=== PATIENT | female | born 1975 | race African-American/Black ===

== ENCOUNTER 2019-10-05 00:49 | Outpatient (CLI) | payer BC, SELFPAY ==
[2019-10-05 19:25] LABS: SARS-CoV-2 RNA PCR Negative
== END 2019-10-05 00:50 | disposition home or self-care (01) ==
LOC: ANHCOVIDDT 00:49
PROVIDERS: PCP Internal Medicine Infectious Disease; Visit Provider Surgery Plastic and Reconstructive Surgery
DX: Z01.812 Encounter for preprocedural laboratory examination (principal); Z11.59 Encounter for screening for other viral diseases
CPT/HCPCS: 87635; C9803; U0003

== ENCOUNTER 2019-10-07 01:23 | Day surgery (SDC) | payer BC, SELFPAY ==
[2019-09-23 15:08] VITALS: BMI 30.6
[2019-10-07] VITALS (12 sets, daily range): BP systolic 99–150; BP diastolic 64–120; PULSE 63–91; RESP 12–20; TEMP 36.2–37.1; O2SAT 98–100
[2019-10-07] MEDS: LACTATED RINGERS 1,000 ML 30 ML IV CONT ×2 (06:24→09:36)
[2019-10-07 06:31] LABS: Urine Cotinine NEGATIVE
--- NOTE | 2019-10-07 06:44 | WPDANESEPPF ---
Anes - Initial Pre Proc Eval Procedure: Operation Date: 10/07/19 07:30 Proposed Procedures p Revision Of Right Breast Reduction - Pranay Harp MD s Left Breast Fat Grafting - Pranay Harp MD Date/Time: 10/07/19 06:44 Surgeon: Pranay Harp MD Pre Op Diagnosis: Hx Breast Reduction Patient Data Age: 43 Gender: F Height: 1.65 m Weight: 85.3 kg Last Vital Signs Temp 36.2 C L 10/07/19 06:29 Pulse 63 10/07/19 06:29 Resp 18 10/07/19 06:29 BP 99/64 L 10/07/19 06:29 Pulse Ox 100 10/07/19 06:29 Allergies Allergy/AdvReac Type Severity Reaction Status Date / Time No Known Allergies Allergy Unverified 10/07/19 06:05 Home Medications Medication Instructions Recorded Confirmed Type multivitamin 1 cap PO DAILY 06/29/19 10/07/19 History docusate sodium 100 mg capsule 100 mg PO BID #14 cap 09/22/19 10/07/19 Rx hydrocodone 5 mg-acetaminophen 325 1 tablet PO Q6H PRN #15 tablet 09/22/19 10/07/19 Rx mg tablet ondansetron HCl 4 mg tablet 4 mg PO Q6H PRN #30 tablet 09/22/19 10/07/19 Rx Vitamin C 1 tablet PO DAILY 09/23/19 10/07/19 History iron 1 tablet PO DAILY 09/23/19 10/07/19 History Laboratory Tests 10/07/19 06:17 Cotinine Negative Patient hx anesthesia problems: none Family hx anesthesia problems: none [facility] Past Medical History Medical History (Updated 10/07/19 @ 06:45 by Severo Luke MD) Obesity Surgical History Surgical History History of bilateral breast reduction surgery Social History Social History Smoking status: Never smoker Spiritual care concerns: No Anes - Eval Final PreProcedure Day of Procedure 10/07/19 06:44 Patient weight: obese Heart: regular rate and rhythm Lungs: clear to auscultation and normal air movement Airway: Mallampati scale class II Neurological: alert and oriented Last oral intake: >/= 8 hours ASA classification: II Emergent: no Anesthetic plan: proceed Anesthesia type and monitoring: general LMA Informed Consent: The patient's anesthetic plan and its attendant risks and benefits were discussed with the patient/family/POA. Questions were solicited and answers provided to the satisfaction of the patient/family/POA.
--- NOTE | 2019-10-07 07:10 | WPDHPUPDATE1 ---
History and Physical Update Update Date/Time: 10/07/19 07:10 History and Physical has been reviewed, including an updated exam of the patient. There are NO changes in the patient's condition. Risks, benefits, and alternatives have been discussed and questions answered. Patient agrees to proceed with procedure.
[2019-10-07] MEDS: SCOPOLAMINE 1.5 MG PATCH TRANSDERM (07:20)
[2019-10-07] MEDS: ceFAZolin 2 GM/D5W 50 ML 2 GM/50 ML BAG IVPB (07:26)
--- NOTE | 2019-10-07 09:42 | P.OP_ITS ---
Procedure Note - Detailed Date of procedure: 10/07/19 Pre-op diagnosis: Hx Breast Reduction Post-op diagnosis: same Procedure performed: Revision bilateral breast (52cm) Subcision left inferior pole breast Bilateral breast fat grafting Description of procedure: Patient was marked in the preoperative holding area. We verified that we are doing bilateral breast revision, bilateral breast fat grafting, and all the procedures above. I marked and discussed our planned treatment areas so we are in full agreement prior to proceeding so she was well informed. I want to make sure we had the same planned she understood realistic expectations of outcome as well as risks involved. Consent was obtained. She was taken to the operating room placed supine operating room table. Anesthesia provided by anesthesiology and prepped and draped in standard sterile fashion. Surgical time-out was taken. There was a discrepancy in the procedure stated during time out and we verified the patient had confirmed the procedure verbally correctly to nursing prior to anesthetsia, at previous visit with me, and pre-operativly while marking. We were full agreement that the above procedure described in this operative note was correct. 14 gauge needle was used to make stab incisions as necessary for abdominal/flank suction lipectomy. These areas were infiltrated with a tumescent solution and adequate time for hemostasis was allowed.I used a multi hole 3 mm cannula on suction to a gravity separation device. total volume of aspirate was 750 cc. I allowed for adequate time for gravity separation. I proceeded to the revision of bilateral breast. This was along bilateral breast IMF which had been marked preoperatively. Ten blade used to excise these areas. These were closed using 2-0 Vicryl. After the fat grafting was completed I did close with 3-0 strata fix and running subcuticular 4-0 Monocryl followed by Steri-Strips. In the sitting position on the left breast I verified the area of depression along the inferior pole. I used a cane needle and did a vertical meshing subcision technique until there was release. I placed the central adipose limiting the inferior and superior aspects just taking adipose tissue and 10 cc syringes. Using a 2.1 mm cannula this was injected 1st on the left breast inferior pole until I had good contour. This was to provide volume as well as help see the sub session open. This was in mu ltiple planes and passes. I then proceeded to bilateral upper pole breast poles. Dressing was placed. Patient was taken the PACU without difficulty. All instrument sponge counts were correct at the end of the case. Anesthesia: GLMA Surgeon: Pranay Harp MD Estimated blood loss (mL): 20 Drains: No Packing: No Pathology: yes (breast tissue) Complications: No immediate complications Condition: stable Disposition: PACU Findings: Right breast revision 29cm Left breast revision 23cm Left inferior pole subcision with k needle Left lower breast fat grafting 57cc Left upper pole breast fat grafting 35cc Right upper pole breast fat grafting 35cc Pre-operativly the right IMF scar had crossed the midline from previous surgery.
== END 2019-10-07 12:50 | disposition home or self-care (01) ==
PROVIDERS: PCP Internal Medicine Infectious Disease; Visit Provider Surgery Plastic and Reconstructive Surgery
PROC: 0HBV0ZZ Excision of Bilateral Breast, Open Approach (ICD-10-PCS; CPT 19318; principal; 2019-10-07 07:30)
PROC: (CPT 15769; 2019-10-07 07:30)
DX: N64.89 Other specified disorders of breast (principal); R20.3 Hyperesthesia; E66.9 Obesity, unspecified; Z68.31 Body mass index [BMI] 31.0-31.9, adult
CPT/HCPCS: 19380; 36415; 80307; 88305; A9270; J0171; J0330; J0690; J1100; J1170; J2250; J2405; J2704; J3010; J7120

== ENCOUNTER 2020-02-19 00:31 | Outpatient (CLI) | payer BC, SELFPAY ==
[2020-02-19 19:14] LABS: SARS-CoV-2 RNA PCR Negative
== END 2020-02-19 00:32 | disposition home or self-care (01) ==
LOC: ANHCOVIDDT 00:31
PROVIDERS: PCP Internal Medicine Infectious Disease; Visit Provider Surgery Plastic and Reconstructive Surgery
DX: Z01.818 Encounter for other preprocedural examination (principal); Z20.828 Contact with and (suspected) exposure to other viral communicable diseases
CPT/HCPCS: 87635; C9803; U0003

== ENCOUNTER 2020-02-22 01:02 | Day surgery (SDC) | payer BC, SELFPAY ==
[2020-02-15 16:24] VITALS: BMI 30.4
--- NOTE | 2020-02-21 12:09 | WPDANESEPPF ---
Anes - Initial Pre Proc Eval Procedure: Operation Date: 02/22/20 10:30 Proposed Procedures p Right Medial and Lateral Breast Revision, Left Lateral Breast Revision, Left Inferior Pole Subcision, - Pranay Harp MD s Bilateral Upper Breast Fat Grafting - Pranay Harp MD Date/Time: 02/21/20 12:09 Surgeon: Pranay Harp MD Pre Op Diagnosis: acquired breast deformity Patient Data Age: 44 Gender: F Height: 1.65 m Weight: 83 kg Allergies Allergy/AdvReac Type Severity Reaction Status Date / Time No Known Allergies Allergy Verified 02/22/20 08:31 Home Medications Medication Instructions Recorded Confirmed Type multivitamin 1 cap PO DAILY 06/29/19 02/15/20 History Vitamin C 1 tablet PO DAILY 09/23/19 02/15/20 History iron 1 tablet PO DAILY 09/23/19 02/22/20 History hydrocodone 5 mg-acetaminophen 325 1 tablet PO Q6H PRN #15 tablet 02/09/20 02/09/20 Rx mg tablet ondansetron HCl 4 mg tablet 4 mg PO Q6H PRN #30 tablet 02/09/20 Rx Patient hx anesthesia problems: none Family hx anesthesia problems: none PMFSH Past Medical History Medical History Obesity Surgical History Surgical History History of bilateral breast reduction surgery Social History Social History Smoking status: Never smoker Alcohol intake: current Substance use: never Living arrangements: with family Gender identity (if verbalized by the patient): Female Sexual Orientation (if Verbalized by the Patient): Straight or Heterosexual Spiritual care concerns: No Anes - Eval Final PreProcedure Day of Procedure 02/21/20 12:09 Patient weight: obese Heart: regular rate and rhythm Lungs: clear to auscultation and normal air movement Airway: Mallampati scale class II Neurological: alert and oriented Last oral intake: >/= 8 hours ASA classification: II Emergent: no Anesthetic plan: proceed Anesthesia type and monitoring: general LMA Informed Consent: The patient's anesthetic plan and its attendant risks and benefits were discussed with the patient/family/POA. Questions were solicited and answers provided to the satisfaction of the patient/family/POA.
[2020-02-22] VITALS (10 sets, daily range): BP systolic 89–141; BP diastolic 67–78; PULSE 75–91; RESP 12–16; TEMP 36.1–36.3; O2SAT 96–100; BMI 31.8
[2020-02-22 08:38] LABS: Urine Cotinine NEGATIVE
[2020-02-22] MEDS: LACTATED RINGERS 1,000 ML 30 ML IV CONT ×2 (09:00→12:03)
[2020-02-22 09:04] LABS: Hemoglobin 11.9 g/dL (12.0-15.0)
[2020-02-22] MEDS: SCOPOLAMINE 1.5 MG PATCH TRANSDERM (09:10)
--- NOTE | 2020-02-22 09:46 | WPDHPUPDATE1 ---
History and Physical Update Update Date/Time: 02/22/20 09:46 History and Physical has been reviewed, including an updated exam of the patient. There are NO changes in the patient's condition. Risks, benefits, and alternatives have been discussed and questions answered. Patient agrees to proceed with procedure.
--- NOTE | 2020-02-22 10:03 | SUR.PREOP ---
DR SIMMONS MARKED PT. RN IN ROOM
--- NOTE | 2020-02-22 10:06 | P.OP_ITS ---
Procedure Note - Detailed Date of procedure: 02/22/20 Pre-op diagnosis: acquired breast deformity Post-op diagnosis: same Procedure performed: * Right medial and lateral breast revision 25.5 cm. * Left lateral breast revision approximally 18cm. * Left inferior pole subcision and fat grafting 43cc * Bilateral upper breast fat grafting right breast 40cc left breast 40cc. Description of procedure: She was marked in the preoperative holding area with her verification. Risks, benefits, alternatives were discussed extensively. I want her to be very realistic about the risks involved as well as expectations. I explained this is functional not cosmetic. This is a revision of her previous functional procedure completed elsewhere. Explained we will never have perfect symmetry. Discussed limitations of the procedure. Answered all of her qu estions to her satisfaction today. Consent obtained. She was taken to the operating room placed supine on the operating room table. Anesthesia provided by anesthesiology and prepped and draped in a standard sterile fashion. Surgical time-out was taken. Abdominal examination was completed. I tumesced with a tumescent solution which was completed through a 14 gauge needle puncture site. Once adequate time for hemostasis a 3 mm multi hole cannula was used and I with a gravity separation device. I proceeded to the breast. Using the tumescent solution a stab incision was made and I tumesced the planned revision areas. A 10 blade used to make the incisions in a resected the excess tissue on the right medial and lateral breast as well as left lateral breast. This was closed with 2-0 Vicryl followed by 3-0 strata fix in a running subcuticular 4-0 Monocryl. Using K needles I completed sub session of the left breast in order to release that inferior pole to the best my ability. Once adequate time for separation of the adipose tissue use the central most portion getting rid of the liquid and lipid components. Using a 3 mm cannula the adipose tissue was injected into the breast as necessary for contouring and to help release this inferior pole. Dressings were placed. She tolerated well. Was awoke and taken the PACU without difficulty. All instrument sponge counts were correct at the end the case. Anesthesia: GLMA Surgeon: Pranay Harp MD Estimated blood loss (mL): 10 Drains: No Packing: No Pathology: yes (Breast tissue / skin) Complications: No immediate complications Condition: stable Disposition: PACU Findings: [place] site abdomen and flanks.
[2020-02-22] MEDS: ceFAZolin 2 GM/D5W 50 ML 2 GM/50 ML BAG IVPB (10:11)
[2020-02-22] MEDS: fentaNYL CITRATE INJ (*CRX) 100 MCG/2 ML VIAL 25 MCG IV PUSH ×8 (12:18→12:53)
[2020-02-22] MEDS: oxyCODONE HCL (*CRX) 5 MG TAB IR PO (13:55)
--- NOTE | 2020-02-22 15:26 | SUR.PHASEII ---
DR SIMMONS WAS CALLED FOR A BRA AND BINDER.
== END 2020-02-22 14:45 | disposition home or self-care (01) ==
PROVIDERS: Visit Provider Surgery Plastic and Reconstructive Surgery
PROC: 0HBV0ZZ Excision of Bilateral Breast, Open Approach (ICD-10-PCS; CPT 19318; principal; 2020-02-22 10:30)
PROC: (CPT 15769; 2020-02-22 10:30)
DX: N64.89 Other specified disorders of breast (principal); R20.3 Hyperesthesia; N64.4 Mastodynia; N60.31 Fibrosclerosis of right breast; N60.41 Mammary duct ectasia of right breast; E66.9 Obesity, unspecified; Z68.31 Body mass index [BMI] 31.0-31.9, adult; Z79.899 Other long term (current) drug therapy
CPT/HCPCS: 19380; 80307; 85014; 85018; 88305; A9270; J0171; J0690; J2250; J2405; J2704; J3010; J7120

== ENCOUNTER 2020-06-13 18:54 | Emergency (ER) | payer BC, SELFPAY ==
[2020-06-13 20:09] VITALS: BP 123/74; PULSE 70; RESP 20; TEMP 36.6; O2SAT 100
--- NOTE | 2020-06-13 22:30 | ED.ALLEREA ---
HPI - Allergic Reaction General Chief complaint: Allergic Reaction Stated complaint: lips swollen, rash, Time Seen by Provider: 06/13/20 22:02 Source: patient Mode of arrival: EMS Limitations: no limitations History of Present Illness HPI narrative: This is a 44 year old female who presents to ER for evaluation of an allergic reaction. She states prior to arrival in ER she developed lip swelling, itching throat and hives while she was taking a shower. She also reports since congestion, sneezing and sob at onset. She called EMS and she was given Benadryl. She reports her lip swelling and sore throat symptoms were resolved. Her hives have resolved as well. She denies history of an allergic reaction in the past. She denies any new exposures. MD complaint: allergic reaction Related Data Home Medications Medication Instructions Recorded Confirmed multivitamin 1 cap PO DAILY 06/29/19 02/15/20 Vitamin C 1 tablet PO DAILY 09/23/19 02/15/20 iron 1 tablet PO DAILY 09/23/19 02/22/20 Allergies Allergy/AdvReac Type Severity Reaction Status Date / Time No Known Allergies Allergy Verified 03/13/20 07:32 Review of Systems Review of Systems: All systems reviewed & are unremarkable except as noted in HPI and below PMFSH Past Medical History Medical History (Updated 06/14/20 @ 00:00 by Martell Spears) Obesity Sarcoidosis Surgical History Surgical History History of bilateral breast reduction surgery Social History Social History Smoking status: Never smoker Alcohol intake: current Substance use: never Gender identity (if verbalized by the patient): Female Spiritual care concerns: No Exam Const: General: no acute distress and alert Orientation/consciousness: patient oriented x3 HENMT: Ears: external ears normal Face and sinus: normal facial exam Mouth: Yes Normal oral and palatal mucosa present, Yes lip normal and Yes moist mucous membranes Throat: posterior oropharynx normal and uvula midline Other: no lip or soft palate or uvula swelling Eyes: EOM: EOMs intact bilaterally Chest: Chest palpation & inspection: normal inspection of the chest Resp: Effort & Inspection: normal respiratory effort, no retractions and no use of accessory muscles Auscultation: not clear to auscultation bilaterally and no wheezes Cardio: Rate: regular rate Rhythm: regular rhythm Heart sounds: no murmurs Skin: General skin exam: normal color Rashes: no rashes Neuro: General: patient oriented x3, moves all extremities and CN's II-XI intact bilaterally Extrem: General: normal to inspection Psych: Affect: normal affect Attitude: cooperative Course Reevaluation(s) Reevaluation #1: Zonia's symptoms resolved after she was given benadryl by EMS. I Discussed discharge plans with her to follow up with PCP. Date: 06/13/20 Time: 22:36 Vital Signs Vital signs: Vital Signs Temperature 97.9 F 06/13/20 20:09 Pulse Rate 70 06/13/20 20:09 Respiratory Rate 20 06/13/20 20:09 Blood Pressure 123/74 06/13/20 20:09 Pulse Oximetry 100 06/13/20 20:09 Temperature 98.1 F 06/13/20 22:53 Pulse Rate 76 06/13/20 22:53 Respiratory Rate 18 06/13/20 22:53 Blood Pressure 143/86 H 06/13/20 22:53 Pulse Oximetry 99 06/13/20 22:53 MDM - Allergic Reaction Differential Diagnosis Differential diagnosis: Likely anaphylaxis, allergic reaction, angioedema, adverse reaction to drug and urticaria Discharge Plan Discharge Clinical Impression: Allergic reaction Patient Disposition: Home, Self-Care Condition: Improved Instructions: Antibiotic Form, General Allergic Reaction (ED) Additional Instructions: Today you were evaluated for an allergic reaction. If you develop worsening sympoms return to ER. Take benadryl or medication such as claritin for your
[2020-06-13] MEDS: FAMOTIDINE 20 MG TABLET PO (22:39)
[2020-06-13] MEDS: predniSONE 20 MG TABLET 60 MG PO (22:39)
[2020-06-13 22:53] VITALS: BP 143/86; PULSE 76; RESP 18; TEMP 36.7; O2SAT 99
== END 2020-06-13 22:54 | disposition home or self-care (01) ==
PROVIDERS: Emergency Provider General Practice; PCP Physician Assistant
DX: T78.40XA Allergy, unspecified, initial encounter (principal); D86.9 Sarcoidosis, unspecified; E66.9 Obesity, unspecified; Z68.31 Body mass index [BMI] 31.0-31.9, adult
CPT/HCPCS: 99283; A9270; J7512

== ENCOUNTER → 2020-07-03 01:50 | Outpatient (CLI) | payer BC, SELFPAY ==
[2020-07-03 19:04] LABS: SARS-CoV-2 RNA PCR Negative
== END ==
PROVIDERS: PCP Physician Assistant; Visit Provider Surgery Plastic and Reconstructive Surgery
DX: Z01.812 Encounter for preprocedural laboratory examination (principal); Z20.822 Contact with and (suspected) exposure to COVID-19
CPT/HCPCS: C9803; U0003; U0005

== ENCOUNTER 2020-07-06 02:11 | Day surgery (SDC) | payer BC, SELFPAY ==
[2020-06-22 15:36] VITALS: BMI 31.1
[2020-07-06] VITALS (14 sets, daily range): BP systolic 110–122; BP diastolic 47–75; PULSE 68–90; RESP 12–19; TEMP 36.3–36.4; O2SAT 97–100
[2020-07-06 11:42] LABS: Urine Cotinine NEGATIVE
--- NOTE | 2020-07-06 11:47 | WPDANESEPPF ---
Anes - Initial Pre Proc Eval Procedure: Operation Date: 07/06/20 13:30 Proposed Procedures p Left Inferior Pole Subcision, Left Inferior Pole Fat Grafting, Revision of Left Medial Inframammary Fold - Pranay Harp MD Date/Time: 07/06/20 11:47 Surgeon: Pranay Harp MD Pre Op Diagnosis: acquired breast deformity Patient Data Age: 44 Gender: F Height: 5 ft 5 in Weight: 84.8 kg Allergies Allergy/AdvReac Type Severity Reaction Status Date / Time No Known Allergies Allergy Verified 06/22/20 15:33 Home Medications Medication Instructions Recorded Confirmed Type multivitamin 1 cap PO DAILY 06/29/19 06/22/20 History Vitamin C 1 tablet PO DAILY 09/23/19 06/22/20 History hydrocodone 5 mg-acetaminophen 325 1 tablet PO Q6H PRN #15 tablet 06/21/20 06/21/20 Rx mg tablet apple cider vinegar 500 mg PO DAILY 06/22/20 06/22/20 History elderberry fruit [Elderberry] 200 mg PO DAILY 06/22/20 06/22/20 History loratadine [Claritin] 10 mg PO DAILY PRN 06/22/20 06/22/20 History Laboratory Tests 07/06/20 11:22 Cotinine Negative Patient hx anesthesia problems: none Family hx anesthesia problems: none PMFSH Past Medical History Medical History Obesity Sarcoidosis Surgical History Surgical History History of bilateral breast reduction surgery Social History Social History Smoking status: Never smoker Alcohol intake: current Alcohol use details: 2-3/MONTH Substance use: never Substance use type: does not use Living arrangements: alone Gender identity (if verbalized by the patient): Female Spiritual care concerns: No Anes - Eval Final PreProcedure Day of Procedure 07/06/20 11:47 Patient weight: obese Heart: regular rate and rhythm Lungs: clear to auscultation Airway: Mallampati scale class II Neurological: alert and oriented Last oral intake: >/= 8 hours ASA classification: II Emergent: no Anesthetic plan: proceed Anesthesia type and monitoring: general LMA and standard monitoring Informed Consent: The patient's anesthetic plan and its attendant risks and benefits were discussed with the patient/family/POA. Questions were solicited and answers provided to the satisfaction of the patient/family/POA.
[2020-07-06] MEDS: LACTATED RINGERS 1,000 ML 30 ML IV CONT ×2 (11:50→16:13)
[2020-07-06] MEDS: SCOPOLAMINE 1.5 MG PATCH TRANSDERM (11:58)
--- NOTE | 2020-07-06 12:53 | WPDHPUPDATE1 ---
History and Physical Update Update Date/Time: 07/06/20 12:53 History and Physical has been reviewed, including an updated exam of the patient. There are NO changes in the patient's condition. Risks, benefits, and alternatives have been discussed and questions answered. Patient agrees to proceed with procedure.
--- NOTE | 2020-07-06 13:21 | PM.PROC ---
Procedure Note - Detailed Date of procedure: 07/06/20 Pre-op diagnosis: acquired breast deformity 1. Revision left medial IMF scar 9cm 2. Fat grafting left breast inferior pole 68cc 3. Subcision left breast inferior pole Procedure performed: Preoperatively the risks, benefits, alternatives were discussed in extensive detail. I want her to be very realistic about the risks involved as well as expectations. Made sure answered all of her questions to her satisfaction. I explained previous success does not guarantee future success. She feels like there has been dramatic improvement. She would like proceed. All questions answered. She voices understanding. Consent obtained. She was marked in the preoperative holding area with her verification. She was taken to the operating room placed supine on the operating room table. Anesthesia was provided by anesthesiology and she was prepped and draped in a standard sterile fashion. Thorough abdominal examination was completed. I made stab incisions and using a 3 mm multi hole cannula on suction to gravity separation device I completed suction lipectomy of these areas to provide the adipose tissue. I provided adequate time for separation and used the central portion discarding the inferior and superior fluid only keeping the central adipose. Fifteen blade was used to excise the left medial IMF scar based on preoperative planning. Prior to closing I did utilize this incision use a 4 mm basket cannula to break up some of the scar tissue and separate the inferior pole. I also used K needles to create sub session of this area. Using a 3 mm single hole blunt-tipped cannula and 10 cc syringes a introduced adipose tissue to the area and the volume mass described. The IMF scar was closed with 3-0 strata fix in a running subcuticular 4-0 Monocryl followed by tissue glue. She tolerated well. Anesthesia: GLMA Surgeon: Pranay Harp MD Estimated blood loss (mL): 10 Drains: No Packing: No Pathology: none sent Complications: No immediate complications Condition: stable Disposition: PACU
[2020-07-06] MEDS: ceFAZolin 2 GM/D5W 50 ML 2 GM/50 ML BAG IVPB (13:29)
[2020-07-06] MEDS: LACTATED RINGERS IRRIG 1,000 ML, LIDOCAINE HCL 1% LOCAL INJ 50 ML, EPINEPHrine HCL INJ ... XX (14:15)
[2020-07-06] MEDS: LIDO 1%/EPINEPHRINE 1:100,000 50 ML VIAL 10 ML INFILTRATE (14:39)
[2020-07-06] MEDS: fentaNYL CITRATE INJ (*CRX) 100 MCG/2 ML VIAL 25 MCG IV PUSH ×6 (14:58→15:45)
--- NOTE | 2020-07-06 15:24 | SUR.PHASEI ---
O2 removed at 1514.
[2020-07-06] MEDS: HYDROmorphone HCL INJ (*CRX) 1 MG/ML SYR 0.25 MG IV PUSH ×3 (16:05→16:55)
[2020-07-06] MEDS: oxyCODONE HCL (*CRX) 5 MG TAB IR PO (17:37)
[2020-07-06] MEDS: ONDANSETRON INJ 4 MG/2 ML VIAL IV PUSH (18:09)
== END 2020-07-06 18:43 | disposition home or self-care (01) ==
PROVIDERS: PCP Physician Assistant; Visit Provider Surgery Plastic and Reconstructive Surgery
PROC: (CPT 15769; principal; 2020-07-06 13:30)
DX: N64.89 Other specified disorders of breast (principal); Z79.899 Other long term (current) drug therapy; D86.9 Sarcoidosis, unspecified; E66.9 Obesity, unspecified; Z68.32 Body mass index [BMI] 32.0-32.9, adult
CPT/HCPCS: 19380; 15771; 15772; 80307; A9270; J0171; J0690; J1100; J1170; J2250; J2405; J2704; J3010; J7120

== ENCOUNTER 2021-01-16 00:20 | Day surgery (SDC) | payer BC, SELFPAY ==
[2021-01-09 11:43] VITALS: BMI 31.1
[2021-01-16] VITALS (9 sets, daily range): BP systolic 115–133; BP diastolic 71–85; PULSE 60–81; RESP 12–20; TEMP 36.2–36.3; O2SAT 98–100; BMI 29.0
--- NOTE | 2021-01-16 10:04 | WPDANESEPPF ---
Anes - Initial Pre Proc Eval Procedure: Operation Date: 01/16/21 14:00 Proposed Procedures p Subcision of Scar Left Breast - Pranay Harp MD s Left Breast Fat Graft - Pranay Harp MD Date/Time: 01/16/21 10:04 Surgeon: Pranay Harp MD Pre Op Diagnosis: Acquired Left Breast Deformity Patient Data Age: 45 Gender: F Height: 1.65 m Weight: 84.82 kg Allergies Allergy/AdvReac Type Severity Reaction Status Date / Time No Known Allergies Allergy Verified 01/16/21 12:34 Home Medications Medication Instructions Recorded Confirmed Type multivitamin 1 cap PO DAILY 06/29/19 01/16/21 History hydrocodone 5 mg-acetaminophen 325 1 tablet PO Q6H PRN #15 tablet 01/01/21 01/09/21 Rx mg tablet ondansetron HCl 4 mg tablet 4 mg PO Q6H PRN #30 tablet 01/01/21 01/09/21 Rx Patient hx anesthesia problems: none Family hx anesthesia problems: none Results Review: All pre-operative results and documents have been reviewed as part of the pre-operative evaluation. [facility] Past Medical History Medical History Obesity Sarcoidosis Surgical History Surgical History History of bilateral breast reduction surgery Social History Social History Smoking status: Never smoker Alcohol intake: current Alcohol use details: 2 GLASSES OF WINE/MONTH Substance use: never Substance use type: does not use Living arrangements: alone Gender identity (if verbalized by the patient): Female Sexual Orientation (if Verbalized by the Patient): Straight or Heterosexual Spiritual care concerns: No Anes - Eval Final PreProcedure Day of Procedure 01/16/21 10:04 Patient weight: obese Heart: regular rate and rhythm Lungs: clear to auscultation and normal air movement Airway: Mallampati scale class II Neurological: alert and oriented Last oral intake: >/= 8 hours ASA classification: II Emergent: no Anesthetic plan: proceed Anesthesia type and monitoring: general LMA Results Review: All pre-operative results and documents have been reviewed as part of the pre-operative evaluation. Informed Consent: The patient's anesthetic plan and its attendant risks and benefits were discussed with the patient/family/POA. Questions were solicited and answers provided to the satisfaction of the patient/family/POA.
--- NOTE | 2021-01-16 12:49 | WPDHPUPDATE1 ---
History and Physical Update Update Date/Time: 01/16/21 12:49 History and Physical has been reviewed, including an updated exam of the patient. There are NO changes in the patient's condition. Risks, benefits, and alternatives have been discussed and questions answered. Patient agrees to proceed with procedure.
[2021-01-16 12:52] LABS: Urine Cotinine NEGATIVE
--- NOTE | 2021-01-16 13:04 | W.PM.PROC2 ---
Procedure Note - Detailed Date of Procedure 01/16/21 Pre-op Diagnosis Acquired Left Breast Deformity Post-op Diagnosis same Procedure Performed Fat grafting left breast 150cc Surgeon Pranay Harp MD Anesthesia general Findings Fat grafting left lower pole breast with subincision using 4mm basket cannula. Description of Procedure Preoperatively the risks, benefits, alternatives were discussed in extensive detail. I want her to be very realistic about the risks involved as well as expectations. Made sure answered all of her questions to her satisfaction. I explained previous success does not guarantee future success. She feels like there has been dramatic improvement. She would like proceed. All questions answered. She voices understanding. Consent obtained. She was marked in the preoperative holding area with her verification. She was taken to the operating room placed supine on the operating room table. Anesthesia was provided by anesthesiology and she was prepped and draped in a standard sterile fashion. Thorough abdominal examination was completed. I made stab incisions and using a 4mm basket cannula cannula on suction to gravity separation device I completed suction lipectomy of these areas to provide the adipose tissue. Incision was made for access to the breast at several locations. Using a 4 mm basket cannula based on preoperative planning adipose tissue was infiltrated into multiple planes and passes. Also used a basket cannula in order to break the lower scar adhesion constricting the lower pole the breast. This was supine and in a sitting position to verify results. Port sites were closed with 3-0 nylon. She tolerated the procedure well. Dressings placed. She was awoken and taken to the PACU without difficulty. All instrument sponge counts were correct at the end of the case. Estimated Blood Loss 5 Drains No Packing No Pathology none sent Complications No immediate complications Condition stable Disposition PACU
[2021-01-16] MEDS: LACTATED RINGERS 1,000 ML 30 ML IV CONT (13:18)
[2021-01-16] MEDS: SCOPOLAMINE 1.5 MG PATCH TRANSDERM (13:18)
[2021-01-16] MEDS: ceFAZolin 2 GM/D5W 50 ML 2 GM/50 ML BAG IVPB (13:24)
[2021-01-16] MEDS: LACTATED RINGERS IRRIG 1,000 ML, LIDOCAINE HCL 1% LOCAL INJ 50 ML, EPINEPHrine HCL INJ ... INFILTRATE (14:02)
[2021-01-16] MEDS: fentaNYL CITRATE INJ (*CRX) 100 MCG/2 ML VIAL 25 MCG IV PUSH ×8 (14:59→15:39)
--- NOTE | 2021-01-16 15:42 | SUR.PHASEI ---
1530 - pt requested to have surgery bra. Dr. Harp called and he okayed for patient to have surgical bra sent home with her. bra needs to be loose and pt is aware and verbally understands
[2021-01-16] MEDS: oxyCODONE HCL (*CRX) 5 MG TAB IR PO (16:02)
== END 2021-01-16 16:45 | disposition home or self-care (01) ==
PROVIDERS: PCP Physician Assistant; Visit Provider Surgery Plastic and Reconstructive Surgery
PROC: (CPT 15877; principal; 2021-01-16 14:00)
PROC: (CPT 15769; 2021-01-16 14:00)
DX: N64.89 Other specified disorders of breast (principal); L90.5 Scar conditions and fibrosis of skin; Z79.899 Other long term (current) drug therapy
CPT/HCPCS: 15877; 80307; A9270; C9290; J0171; J0690; J1100; J2250; J2405; J2704; J3010; J7120; L8000

== ENCOUNTER 2021-05-04 13:34 | Outpatient (CLI) | payer BC, SELFPAY ==
--- NOTE | ~2021-05-04 | MMUS_ITS ---
EXAMINATION: MM diagnostic erasto LT w rajesh, US breast LT complete HISTORY: Left breast lump TECHNIQUE: Additional 3-D tomosynthesis images of the left breast were performed and synthetic 2-D im ages were generated. CAD analysis was submitted and interpreted. High resolution complete left breast ultrasound was performed. COMPARISON: None BREAST PARENCHYMAL COMPOSITION: Breast composed of scattered areas of fibroglandular density FINDINGS: MAMMOGRAPHIC FINDINGS: There are changes of previous breast reduction surgery. There are benign-appearing left breast calcif ications. No discrete mass is identified. ULTRASOUND: Complete left breast ultrasound including all 4 quadrants of the subareolar location: There are multiple cysts of the left breast. At 7:00, 9 cm from the nipple, there is a slightly irregular shaped hypoechoic mass with echogenic ce nter, antiparallel configuration and posterior acoustic enhancement. This mass measures 10 x 8 x 5 mm . No internal vascularity. There is diffusely heterogeneous echotexture in the 10:00 position of the left breast 6 cm from the nipple without discrete mass. IMPRESSION: 1. Irregular shaped hypoechoic left breast mass at 7:00, 9 cm from the nipple measuring 1 cm maximum dimension. 2. Ultrasound-guided left breast biopsy recommended. BI-RADS category 4, suspicious findings. Reviewed, dictated and finalized at location A. TH SOCIAL WORK PROFESSOR IMPRESSION: 1. Irregular shaped hypoechoic left breast mass at 7:00, 9 cm from the nipple m easuring 1 cm maximum dimension. 2. Ultrasound-guided left breast biopsy recommended. BI-RADS category 4, suspicious findings.
== END 2021-05-04 13:35 | disposition home or self-care (01) ==
LOC: ANHIMG 13:36
PROVIDERS: PCP Physician Assistant; Visit Provider Surgery Plastic and Reconstructive Surgery
DX: N63.20 Unspecified lump in the left breast, unspecified quadrant (principal); R92.8 Other abnormal and inconclusive findings on diagnostic imaging of breast
CPT/HCPCS: 76641; 77061; 77065; G0279

== ENCOUNTER 2021-05-17 12:44 | Outpatient (CLI) | payer BC, SELFPAY ==
--- NOTE | ~2021-05-17 | MMUS_ITS ---
EXAMINATION: US breast biopsy LT w image, MM post biopsy invasive LT DATE: 05/17/2021 14:10 (accession [id number]), 05/17/2021 14:09 (accession [id number]) INDICATION: Indeterminate left breast mass. Ultrasound-guided core biopsy is requested to evaluate fo r malignancy. TECHNIQUE AND FINDINGS: The risks and potential benefits of the procedure were discussed with the patient including bleeding, infection, and nondiagnostic specimen. A time out was performed. The skin of the left breast was pre pared and draped in usual sterile fashion. 1% lidocaine was used for superficial anesthesia. 1% lidoc spenser with epinephrine was used for deep anesthesia. A vacuum-assisted biopsy gun needle was advanced through to the outer edge of the region of interest from a lateral approach utilizing sonographic guidance. A total of three tissue core samples were obt ained through the lesion. The lesion nearly completely disappeared after the first sample was taken. A tissue marker clip was then placed at the biopsy site. Hemostasis was achieved. A sterile bandage w as applied. The patient tolerated procedure well and there was no evidence of immediate complication. The patient was given verbal instructions to return to the Emergency Department in the event of severe breast pa in or rapid breast enlargement. A two view left breast mammogram was obtained to document tissue willa er clip placement. IMPRESSION: 1. Successful ultrasound-guided vacuum-assisted biopsy of left breast mass with tissue marker placeme nt. Reviewed, dictated and finalized at location A. N PRODUCER IMPRESSION: 1. Successful ultrasound-guided vacuum-assisted biopsy of left breast mass with tissue marker placement.
== END 2021-05-17 12:45 | disposition home or self-care (01) ==
LOC: ANHIMG 12:48
PROVIDERS: PCP Physician Assistant; Visit Provider Surgery Plastic and Reconstructive Surgery
DX: N63.24 Unspecified lump in the left breast, lower inner quadrant (principal)
CPT/HCPCS: 19083; 88305; A4648

== ENCOUNTER 2021-10-25 02:05 | Day surgery (SDC) | payer OTHER, SELFPAY ==
[2021-10-18 08:01] VITALS: BMI 31.8
--- NOTE | 2021-10-18 08:21 | PC.NURSE ---
Report to the Outpatient Waiting Room, entrance under the green pavilion located off [facility], at time _0630 on date 10/25/21. OR Time: _0830__. - You and your visitor will be asked a series of questions to screen for COVID 19 for your protection. - Only one visitor is allowed at this time. - The patient visitor is requested to leave or wait in car when not with patient. - A mask is required within the hospital. Patients may have clear liquids (water, carbonated beverages, clear teas, apple juice) until 3 hours prior to surgery with a maximum of 20 ounces. - No food from midnight until time of surgery - Infants may have breast milk until 4 hours before surgery, infant formula 6 hours prior to surgery. - Children will be allowed to drink immediately following surgery. If applicable, please bring a bottle or sippy cup to assist with drinking. Juice, water, soda, and popsicles are readily available. For infants on formula, please bring formula the day of surgery. Pacifiers are allowed. Take the following medications with a SIP of water the morning of surgery: n/a Medications to discontinue per physician _ vitamins, supplements Date to take last dose_10/22/21 Please no make-up, nail greek, hairspray, perfume, deodorant, or body powder the day of surgery. No jewelry (including any body piercings) or valuables the day of surgery, leave them at home. Please take a shower or bath the night before, or the morning of, surgery with an antibacterial soap. Wear comfortable, loose fitting clothing. Children are encouraged to wear pajamas. - Jewelry must be removed prior to entering the operating room. Rings and piercings that are not removed may be cut off. - The hospital will not accept responsibility for valuables. - Please leave all valuables, including medications, at home the day of surgery. If you are going home after surgery, a licensed crew truck driver must drive you home. - NO public transportation without another adult. - We recommend that an adult stay with you for 24 hours following discharge. - We also recommend that you do not drive, make important decision, drink alcoholic beverages, or take any drugs that were not prescribed by your health care provider for at least 24 hours after your discharge time. For Pediatric surgeries, we recommend two adults accompany the child home (only one inside the building at this time). Follow any additional instructions given to you from your surgeon. If you or anyone in your household have experienced Covid symptoms in the past week, please notify your surgeon or the nurse liaison at the phone number below for possible testing. Telephone instructions given to Eliphilip Lin and asked if any additional questions and then verbalized understanding. Patient advised to call surgeon office or pre surgery nurse liaison [phone] if any additional questions.
--- NOTE | 2021-10-24 13:36 | P.PNAN_ITS ---
Anes - Initial Pre Proc Eval Procedure: Operation Date: 10/25/21 08:30 Proposed Procedures p Bilateral Breast Fat Grafting - Pranay Harp MD Date/Time: 10/24/21 13:36 Surgeon: Pranay Harp MD Pre Op Diagnosis: acquired breast deformity Patient Data Age: 45 Gender: F Height: 1.65 m Weight: 87 kg Allergies Allergy/AdvReac Type Severity Reaction Status Date / Time No Known Allergies Allergy Verified 10/17/21 09:23 Home Medications Medication Instructions Recorded Confirmed Type multivitamin 1 cap PO DAILY 06/29/19 10/18/21 History zolpidem 5 mg tablet (Ambien) 5 mg PO QHS PRN insomnia #15 tabs 01/22/21 10/18/21 Rx docusate sodium 100 mg capsule 100 mg PO DAILY #14 caps 10/17/21 10/18/21 Rx (Colace) ondansetron HCl 4 mg tablet 4 mg PO Q8H #21 tabs 10/17/21 10/18/21 Rx Patient hx anesthesia problems: none Family hx anesthesia problems: none Results Review: All pre-operative results and documents have been reviewed as part of the pre- operative evaluation. [facility] Past Medical History Medical History (Updated 10/24/21 @ 13:37 by Car Biggs DO) Anemia Obesity PONV (postoperative nausea and vomiting) Sarcoidosis Surgical History Surgical History (Updated 10/24/21 @ 13:37 by Car Biggs DO) History of bilateral breast reduction surgery History of hysterectomy Social History Social History Smoking status: Never smoker Alcohol intake: current Alcohol use details: 2 GLASSES OF WINE/MONTH Substance use: never Substance use type: does not use Living arrangements: alone Gender identity (if verbalized by the patient): Female Sexual Orientation (if Verbalized by the Patient): Straight or Heterosexual Spiritual care concerns: No Anes - Eval Final PreProcedure Day of Procedure 10/24/21 13:36 Patient weight: obese Heart: regular rate and rhythm Lungs: clear to auscultation Airway: Mallampati scale class II Neurological: alert and oriented Last oral intake: >/= 8 hours ASA classification: III Emergent: no Anesthetic plan: proceed Anesthesia type and monitoring: general LMA and standard monitoring Results Review: All pre-operative results and documents have been reviewed as part of the pre- operative evaluation. Informed Consent: The patient's anesthetic plan and its attendant risks and benefits were discussed with the patient/family/POA. Questions were solicited and answers provided to the satisfaction of the patient/family/POA.
[2021-10-25] VITALS (12 sets, daily range): BP systolic 110–148; BP diastolic 66–88; PULSE 70–91; RESP 12–20; TEMP 36.2–36.4; O2SAT 94–100
--- NOTE | ~2021-10-25 | XR_ITS ---
XR fluoroscopy no charge DATE: 10/25/2021 10:29 INDICATION: Broken lost instrument TECHNIQUE: 2 spot C-arm images are provided. 14.5 seconds fluoroscopy time 3.89 mGy COMPARISON: None FINDINGS: A radiopaque metallic foreign body overlies the left upper abdomen on the initial radiograp h and is no longer present on the follow-up radiograph, having been successfully removed. IMPRESSION: Successful removal of broken instrument Reviewed, dictated and finalized at Location A. Reviewed, dictated and finalized at location B.
[2021-10-25 06:58] LABS: Urine Cotinine NEGATIVE
[2021-10-25] MEDS: SCOPOLAMINE 1.5 MG PATCH TRANSDERM (07:00)
[2021-10-25] MEDS: LACTATED RINGERS 1,000 ML 30 ML IV CONT ×2 (07:00→11:33)
--- NOTE | 2021-10-25 09:00 | WPDHPUPDATE1 ---
History and Physical Update Update Date/Time: 10/25/21 09:00 History and Physical has been reviewed, including an updated exam of the patient. There are NO changes in the patient's condition. Risks, benefits, and alternatives have been discussed and questions answered. Patient agrees to proceed with procedure.
[2021-10-25] MEDS: ceFAZolin 2 GM/D5W 50 ML 2 GM/50 ML BAG IVPB (09:06)
[2021-10-25] MEDS: LACTATED RINGERS IRRIG 1,000 ML, LIDOCAINE HCL 1% LOCAL INJ 50 ML, EPINEPHrine HCL INJ ... INFILTRATE (09:06)
[2021-10-25] MEDS: TRANEXAMIC ACID 1,000MG/ISO100 1,000 MG/100 ML BAG 200 MG IVPB (09:32)
--- NOTE | 2021-10-25 11:28 | W.PM.PROC2 ---
Procedure Note - Detailed Date of Procedure 10/25/21 Pre-op Diagnosis acquired breast deformity Post-op Diagnosis Same Procedure Performed Bilateral breast fat grafting 225cc per breast (450cc total volume) Surgeon Pranay Harp MD Anesthesia General Findings [place] site - back Injection sites bilateral upper pole breast. Description of Procedure Preoperatively the risks, benefits, alternatives were discussed in extensive detail.? I want her to be very realistic about the risks involved as well as expectations.? Made sure answered all of her questions to her satisfaction.? I explained previous success does not guarantee future success.? She feels like there has been dramatic improvement.? She would like proceed.? All questions answered to her satisfaction.? She voices a clear understanding.? Consent obtained. She was marked in the preoperative holding area with her verification.? She was taken to the operating room and Anesthesia was provided by anesthesiology. Placed prone on the operating room table then prepped and draped in a standard sterile fashion. I made stab incisions with a 14 gauge needle and 3mm multihole cannula on suction to gravity separation device I completed suction lipectomy of these areas to provide the adipose tissue. Total lipoaspirate 1500cc. During this procedure the multi-hole harvest cannula fractured. C-arm fluoroscopy was brought into room to verify the position. Through small stab incision I was able to identify the cannula and removed uneventfully. Post removal film showed no residual foreign material related to this procedure. This site was closed with 3-0 Moncryl, 4-0 Monocryl and tissue glue. Patient was transferred to the supine position. Incision was made for access to the breast at several locations.? Using a 4 mm basket cannula based on preoperative planning adipose tissue was infiltrated into multiple planes and passes. This was in the sitting position.? Port sites were closed with 3-0 nylon.? She tolerated the procedure well. Dressings placed. She was awoken and taken to the PACU without difficulty.? All instrument sponge counts were correct at the end of the case. Estimated Blood Loss 20 Drains No Packing No Pathology None sent Complications Other complications (Fractured suction cannula completely removed (verified visually, by palpation, and by fluroscopy).) Condition Stable Disposition PACU
[2021-10-25] MEDS: fentaNYL CITRATE INJ (*CRX) 100 MCG/2 ML VIAL 25 MCG IV PUSH ×5 (11:42→12:03)
[2021-10-25] MEDS: HYDROmorphone HCL INJ (*CRX) 1 MG/ML SYR 0.5 MG IV PUSH ×3 (12:10→12:40)
[2021-10-25] MEDS: ONDANSETRON INJ 4 MG/2 ML VIAL IV PUSH (13:02)
[2021-10-25] MEDS: diphenhydrAMINE HCl INJ 50 MG/ML VIAL 25 MG IV PUSH (13:18)
== END 2021-10-25 14:24 | disposition home or self-care (01) ==
PROVIDERS: PCP Family Medicine; Visit Provider Surgery Plastic and Reconstructive Surgery
PROC: (CPT 15769; principal; 2021-10-25 08:30)
DX: N64.89 Other specified disorders of breast (principal); N64.4 Mastodynia; D64.9 Anemia, unspecified; D86.9 Sarcoidosis, unspecified; E66.9 Obesity, unspecified; Z68.32 Body mass index [BMI] 32.0-32.9, adult; R20.3 Hyperesthesia; Z98.890 Other specified postprocedural states; Z79.899 Other long term (current) drug therapy
CPT/HCPCS: 15771; 15772 ×8; 80307; 99199; A9270; J0171; J0330; J0690; J1100; J1170; J1200; J2250; J2405; J2704; J3010; J7120